=== PATIENT | female | born 1960 | race African-American/Black ===

== ENCOUNTER 2023-09-08 16:01 | Emergency (ER) | payer MEDICAID, MEDICARE ==
[~2023-09-08] VITALS: Ht 167.6 cm; Wt 80.0 kg
[2023-09-08 16:10] VITALS: BP 142/84; O2SAT 98
[2023-09-08] MEDS ORDERED: CYCLOBENZAPRINE 10MG TABLET PO NR (16:30)
[2023-09-08] MEDS ORDERED: KETOROLAC 15MG/ML VIAL IV ONE (16:30)
[2023-09-08] MEDS ORDERED: KETOROLAC 15MG/ML VIAL IM ONE (17:30)
[2023-09-08 17:40] LABS: BASOPHILS % 0.6 % (0.0-2.0); EOSINOPHILS % 1.8 % (0.0-5.0); HEMATOCRIT. 36.7 % (36.0-48.0); HEMOGLOBIN. 12.6 g/dL (12.0-16.0); LYMPHOCYTES % 25.1 % (20.0-50.0); MEAN CORPUSCULAR HEMOGLOBIN 31.6 pg (28.0-32.0); MEAN CORPUSCULAR HGB CONC 34.2 g/dL (31.0-37.0); MEAN CORPUSCULAR VOLUME 92.3 fL (81.0-99.0); MEAN PLATELET VOLUME 7.1 fl (7.4-10.4); NEUTROPHILS % 65.5 % (40.0-76.0); PLATELET 253 x1000/uL (130-400); RED BLOOD CELL COUNT 3.98 mill/uL (4.2-5.4); RED CELL DISTRIBUTION WIDTH 14.2 % (11.6-14.6); WHITE BLOOD COUNT 10.1 x1000/uL (4.5-11.0)
[2023-09-08 17:43] LABS: CHLORIDE 102 mEq/L (98-107); INDEX HEMOLYSI 1 (1-3); INDEX ICTERIC 1 (1-4); INDEX LIPEMIC 1 (1-3); POTASSIUM 3.4 mEq/L (3.5-5.1); SODIUM 138 mEq/L (136-145)
[2023-09-08 17:50] LABS: CARBON DIOXIDE 27 mEq/L (21-32); CREATININE 0.7 mg/dL (0.6-1.3); GLUCOSE 346 mg/dL (70-105); UREA NITROGEN BLOOD 11 mg/dL (7-21)
[2023-09-08] MEDS ORDERED: INSULIN REGULAR (HUMULIN R) 300UNITS/3ML VIAL IV NR (18:00)
[2023-09-08] MEDS ORDERED: NAPR-681 MT (18:33)
[2023-09-08] MEDS ORDERED: CYCL10TA21 MT (18:33)
[2023-09-08 19:26] VITALS: PULSE 113; RESP 16; TEMP 99.5
[2023-09-08 19:33] LABS: CLARITY URINE CLEAR (CLEAR); COLOR URINE YELLOW (YELLOW); GLUCOSE URINE 3+ (NEGATIVE); KETONES URINE NEGATIVE (NEGATIVE); LEUKOCYTE ESTERASE URINE 1+ (NEGATIVE); NITRITE URINE NEGATIVE (NEGATIVE); OCCULT BLOOD URINE NEGATIVE (NEGATIVE); PROTEIN URINE NEGATIVE (NEGATIVE); SPECIFIC GRAVITY URINE 1.021 (1.005-1.030); UROBILINOGEN URINE 0.2 E.U./dL (0.2-1.0)
[2023-09-08 19:36] LABS: SQUAMOUS EPITHELIAL CELL URINE NONE SEEN /lpf (RARE/1+)
[2023-09-08 19:50] LABS: BACTERIA URINE TRACE; RBC URINE NONE SEEN /hpf (0-2)
== END 2023-09-08 19:29 | disposition home or self-care (01) ==
LOC: ER 16:01
DX: M25.562 Pain in left knee (principal); E11.65 Type 2 diabetes mellitus with hyperglycemia; M54.9 Dorsalgia, unspecified; I10 Essential (primary) hypertension; Z90.49 Acquired absence of other specified parts of digestive tract
CPT/HCPCS: 80048; 81003; 82962; 85025; 36415; 72110; 73560; 96372; 99284; J1885; Z7610 ×2; L1830

== ENCOUNTER 2023-10-28 00:15 | Emergency (ER) | payer MEDICARE, MEDICAID ==
[~2023-10-28] VITALS: Ht 170.2 cm; Wt 92.9 kg
[~2023-10-28 00:15] MED LIST: CYCL10TA21 MT; NAPR-681 MT
[2023-10-28 00:39] VITALS: BP 124/71; RESP 16; TEMP 98.7; O2SAT 98
[2023-10-28 02:49] VITALS: PULSE 80
== END 2023-10-28 09:45 | disposition home or self-care (01) ==
LOC: ER 00:15
DX: S40.2 Other superficial injuries of shoulder (principal); E11.9 Type 2 diabetes mellitus without complications; I10 Essential (primary) hypertension; W49.04XA Ring or other jewelry causing external constriction, initial encounter; Y93.89 Activity, other specified; Y92.89 Other specified places as the place of occurrence of the external cause; Y99.8 Other external cause status
CPT/HCPCS: 99281